=== PATIENT | male | born 1935 ===

== ENCOUNTER 2025-01-15 13:30 | Emergency (ER) | payer OTHER ==
[~2025-01-15] VITALS: Ht 167.6 cm; Wt 73.0 kg
[~2025-01-15 13:30] MED LIST: LEVSIN/SL0.125 MG SL; LOSARTAN POTASS50 MG; PHENERGAN25 MG PO; SYNTHROID50 MCG; TAMS0.4C
[2025-01-15] MEDS ORDERED: HYDRALAZINE HCL25 MG PO (14:03)
[2025-01-15] MEDS ORDERED: ECOTRIN81 MG PO (14:03)
[2025-01-15] MEDS ORDERED: CHLORTHALIDONE25 MG PO (14:04)
[2025-01-15] MEDS ORDERED: ATORVASTATIN CA40 MG PO (14:04)
[2025-01-15] MEDS ORDERED: ONDANSETRON HCL 2 MG/ML VIAL IV ONE (15:30)
[2025-01-15] MEDS ORDERED: 0.9 % SODIUM CHLORIDE 1,000 ML IV SCH (15:30)
[2025-01-15] MEDS ORDERED: KETOROLAC TROMETHAMINE 30 MG VIAL IV ONE (15:30)
[2025-01-15] MEDS ORDERED: FAMOtidine 10 MG/ML (4ML VIAL) IV PUSH ONE (15:30)
[2025-01-15] MEDS ORDERED: KETOROLAC TROMETHAMINE 30 MG VIAL ONE (15:45)
[2025-01-15] MEDS ORDERED: ONDANSETRON HCL 2 MG/ML VIAL ONE (15:45)
[2025-01-15] MEDS ORDERED: FAMOTIDINE/PF 20 MG/2 ML VIAL ONE (15:45)
[2025-01-15 16:18] LABS: BASO % 0.2 % (0.1-1.2); EOS # 0.07 (0.04-0.54); EOS % 0.5 % (0.7-7.0); LYMPH # 1.70 (1.18-3.74); LYMPH % 12.3 % (19.3-53.1); MEAN PLATELET VOLUME 13.00 fl (9.4-12.4); MONO # 0.86 (0.24-0.82); MONO % 6.2 % (4.7-12.5); NEUT # 11.12 (1.56-6.13); NEUT % 80.5 % (34.0-71.1); RED CELL DISTRIBUTION WIDTH 13.6 % (11.6-14.4)
[2025-01-15 16:34] LABS: ALT/SGPT 39.0 U/L (12-78); AST/SGOT 29.0 U/L (15-37); BILIRUBIN TOTAL 2.18 mg/dL (0.3-1.2); BUN CREA RATIO 9.0 (7.0-25.0); CREATININE SERUM 0.86 mg/dL (0.70-1.30); GFR 84.12; GLOBULINA 4.0 G/DL (2.4-3.5); GLUCOSE FASTING 107.0 mg/dL (65-100); OSMOLALITY SERUM 286.0 MOSM/KG (275-295)
[2025-01-15] MEDS ORDERED: ENALAPRILAT DIHYDRATE 1.25 MG/ML VIAL IV ONE ×2 (21:39→21:45)
== END 2025-01-15 22:58 | disposition home or self-care (01) ==
LOC: ER 13:30
PROVIDERS: General Practice
DX: R10.84 Generalized abdominal pain (principal); I10 Essential (primary) hypertension; E78.00 Pure hypercholesterolemia, unspecified; N40.0 Benign prostatic hyperplasia without lower urinary tract symptoms; E07.89 Other specified disorders of thyroid
CPT/HCPCS: 36415; 74177; 96365; 96366; 99284; J1885; J2405; J3490; J7030; Q9965